=== PATIENT | male | born 2000 | race Caucasian/White ===

== ENCOUNTER 2025-04-03 04:53 | Emergency (ER) | payer BC ==
[2025-04-03 05:35] LABS: #Basophils 0.11 10x3/uL (0.0-0.2); #Eosinophils 0.29 10x3/uL (0.0-0.5); #Monocytes 0.67 10x3/uL (0.0-1.1); #Neutrophils 3.43 10x3/uL (1.5-8.4); %Basophils 1.6 % (0.0-2.0); %Eosinophils 4.3 % (0.0-6.0); %Lymphocytes 33.4 % (18.0-47.0); %Monocytes 9.9 % (0.0-10.0); %Neutrophils 50.5 % (40.0-75.0); Hematocrit 43.5 % (38.8-50.0); Hemoglobin 15.3 g/dL (13.5-17.5); Mean Corpuscular Hemoglobin 30.0 pg (27.0-33.0); Mean Corpuscular Volume 85.3 fL (81.2-95.1); Platelet Count 245 10x3/uL (150-450); Red Blood Cell (RBC) Count 5.10 10x6/uL (4.32-5.72); White Blood Cell (WBC) Count 6.79 10x3/uL (3.5-10.5)
[2025-04-03 05:55] LABS: Glucose, Urine (Dipstick) Normal (Negative); Leukocyte Negative (Negative); Protein, Urine (Dipstick) Negative (Neg-Trace); Specific Gravity, Urine 1.015 (1.005-1.030)
[2025-04-03 06:01] LABS: Cocaine Metabolite Screen Negative (Negative); THC/Cannabinoid Screen PRELIM POSITIVE (Negative); Tricyclic Screen Negative (Negative)
[2025-04-03 06:03] LABS: Bacteria/HPF 1+ HPF (None Seen); CAUTI Indications for Culture Alt mental st,lethar; RBC/HPF 0-3 HPF (0-3); WBC/HPF 0-3 HPF (0-3)
[2025-04-03 06:04] LABS: Urine Culture Reflex No No
[2025-04-03 06:13] LABS: ALT (SGPT) 30 U/L (Less than 45); AST (SGOT) 25 U/L (11-34); Acetaminophen Less than 10 mcg/mL (Less than 10); Albumin 5.0 g/dL (3.1-4.5); Alkaline Phosphatase 60 U/L (40-110); Anion Gap 16 mmol/L (10-20); BUN (Urea Nitrogen) 8 mg/dL (8.9-20.6); Bilirubin, Total 0.3 mg/dL (0.3-1.2); CK (CPK) 122 U/L (30-200); Calc. Creatinine Clearance 0 mL/min (70-130); Calcium 9.5 mg/dL (7.8-10.44); Carbon Dioxide 24 mmol/L (22-29); Chloride 103 mmol/L (98-107); Globulin 2.5 g/dL (2.4-3.5); Glucose 97 mg/dL (70-105); Potassium 3.6 mmol/L (3.5-5.1); Salicylate Less than 8.0 mg/dL (Less than 8.0); Sodium 139 mmol/L (136-145)
[2025-04-03 06:19] LABS: Troponin I Less than 0.010 ng/mL (< 0.028)
[2025-04-03] MEDS ORDERED: Ketorolac Tromethamine 30 MG (1 mL) VIAL ONE (08:36)
[2025-04-03] MEDS ORDERED: Iopamidol 370 76% 100 ML VIAL ONE (14:09)
== END 2025-04-03 08:50 | disposition home or self-care (01) ==
LOC: CSHERS 04:53
DX: G62.9 Polyneuropathy, unspecified (principal); F41.0 Panic disorder [episodic paroxysmal anxiety]; F17.290 Nicotine dependence, other tobacco product, uncomplicated
CPT/HCPCS: 70450; 70496; 70498; 80053; 80306; 80307; 81001; 82550; 84484; 85025; 93005; 94760; 96374; J1885; Q9967